=== PATIENT | male | born 1965 | race African-American/Black ===

== ENCOUNTER 2023-02-20 07:52 | Emergency (ER) | payer MEDICAID ==
[~2023-02-20] VITALS: Ht 182.9 cm; Wt 86.0 kg
[2023-02-20 07:54] VITALS: O2SAT 100
[2023-02-20] MEDS ORDERED: SODIUM CHLORIDE 0.9% 500 ML IV ONE (08:15)
[2023-02-20] MEDS ORDERED: METHYLPREDNISOLONE SOD SUCC 40MG VIAL IV ONE (08:15)
[2023-02-20] MEDS ORDERED: MAGNESIUM 2 G PREMIX 50 ML IV ONE (08:15)
[2023-02-20] MEDS ORDERED: METHYLPREDNISOLONE SOD SUCC 125MG/2ML (ACT-O-VIAL) IV SCH (08:30)
[2023-02-20 08:46] LABS: BASOPHILS % 0.2 % (0.0-2.0); EOSINOPHILS % 11.5 % (0.0-5.0); HEMATOCRIT. 42.4 % (42.0-52.0); HEMOGLOBIN. 14.3 g/dL (14.0-18.0); LYMPHOCYTES % 37.1 % (20.0-50.0); MEAN CORPUSCULAR HEMOGLOBIN 32.1 pg (28.0-32.0); MEAN CORPUSCULAR HGB CONC 33.8 g/dL (31.0-37.0); MEAN CORPUSCULAR VOLUME 94.9 fL (80.0-94.0); MONOCYTES % 11.7 % (2.0-8.0); NEUTROPHILS % 39.5 % (40.0-76.0); PLATELET 202 x1000/uL (130-400); RED BLOOD CELL COUNT 4.47 mill/uL (4.7-6.1); RED CELL DISTRIBUTION WIDTH 13.2 % (11.6-14.6); WHITE BLOOD COUNT 4.5 x1000/uL (4.5-11.0)
[2023-02-20 09:08] LABS: CHLORIDE 107 mEq/L (98-107); INDEX HEMOLYSI 1 (1-3); INDEX ICTERIC 1 (1-4); INDEX LIPEMIC 1 (1-3); POTASSIUM 3.4 mEq/L (3.5-5.1); SODIUM 138 mEq/L (136-145)
[2023-02-20 09:34] LABS: ALANINE AMINOTRANSFERASE 46 IU/L (13-61); ALBUMIN 3.5 g/dL (3.4-5.0); ASPARTATE AMINOTRANSFERASE 48 IU/L (15-37); BILIRUBIN TOTAL 0.6 mg/dL (0.1-1.0); CALCIUM 8.5 mg/dL (8.5-10.1); CARBON DIOXIDE 24 mEq/L (21-32); GLUCOSE 121 mg/dL (70-105); NT PRO B-TYPE NATRIURETIC PEP 121 pg/mL (5-125); PROTEIN TOTAL 8.1 g/dL (6.0-8.3); UREA NITROGEN BLOOD 17 mg/dL (7-21)
[2023-02-20 12:28] VITALS: BP 126/86; PULSE 84; RESP 20; TEMP 98
[2023-02-20] MEDS ORDERED: LORA10TA64 MT (12:41)
[2023-02-20] MEDS ORDERED: ALBU90AE INH (12:41)
[2023-02-20] MEDS ORDERED: FLUT9.9S BOTHNSTRLS (12:41)
[2023-02-20] MEDS ORDERED: P50 MT (12:41)
[2023-02-20] MEDS ORDERED: ALBU05 NEB (19:55)
[2023-02-20] MEDS ORDERED: NEBU-248 MC (19:55)
== END 2023-02-20 12:49 | disposition home or self-care (01) ==
LOC: ER 08:32
DX: J45.901 Unspecified asthma with (acute) exacerbation (principal)
CPT/HCPCS: 80053; 83880; 85025; 36415; 71045; 93005; 96365; 96375; 99285; J3475; J2930; J7040; Z7610 ×3; J2920

== ENCOUNTER 2023-02-20 16:35 | Emergency (ER) | payer MEDICAID ==
[~2023-02-20] VITALS: Ht 180.3 cm; Wt 73.0 kg
[~2023-02-20 16:35] MED LIST: ALBU90AE INH; FLUT9.9S BOTHNSTRLS; LORA10TA64 MT; P50 MT
[2023-02-20 16:38] VITALS: BP 174/92; O2SAT 100
[2023-02-20] MEDS ORDERED: ALBUTEROL (0.083%) 2.5MG/3ML NEB HHN STA (16:52)
[2023-02-20] MEDS ORDERED: IPRATROPIUM BROMIDE (0.02%) 0.5MG/2.5ML NEB HHN STA (16:52)
[2023-02-20] MEDS ORDERED: IPRATROPIUM BROMIDE (0.02%) 0.5MG/2.5ML NEB ONE (16:59)
[2023-02-20] MEDS ORDERED: ALBUTEROL (0.083%) 2.5MG/3ML NEB ONE (16:59)
[2023-02-20 17:04] VITALS: PULSE 104; RESP 22
[2023-02-20] MEDS ORDERED: ALBU05 NEB (19:55)
[2023-02-20] MEDS ORDERED: NEBU-248 MC (19:55)
[2023-02-20 20:12] VITALS: PULSE 90; RESP 22; TEMP 98.6
== END 2023-02-20 20:13 | disposition home or self-care (01) ==
LOC: ER 16:35
DX: J45.901 Unspecified asthma with (acute) exacerbation (principal)
CPT/HCPCS: 94640; 99283; Z7610 ×3